=== PATIENT | male | born 1975 | race Caucasian/White ===

== ENCOUNTER 2016-10-15 19:00 | Emergency (ER) | payer BC, SELFPAY ==
--- NOTE | ~2016-10-15 | ER ---
PATIENT'S NAME: JOHN DIAZ [facility] AGE: 41 Y [address] ROOM: [place] [id number] LOCATION: [facility] ADMIT DATE: 10/15/2016 ER/Outpatient Report DISCHARGE DATE: 10/15/2016 FAMILY PHYSICIAN: Garett Schafer MD ATTENDING PHYSICIAN: Graeme Contreras Time of Arrival: 1902 hours. Time of Exam: 1902 hours. CHIEF COMPLAINT: Back pain. HISTORY OF PRESENT ILLNESS: The patient states he has had a long history of back problems, has had several back surgeries. He had some generalized discomfort on Friday and this morning he lifted up the humidifier to refill it and developed pain in the left lower back area. It feels sharp in that area, deep into the hip and does have some radiation down the left leg. Denies any numbness of his foot. Does have some tingling of his legs. States he has been peeing and pooping without any problems. He has not been incontinent. Has not had any other injuries. ALLERGIES: NO KNOWN ALLERGIES. CURRENT MEDICATIONS: On his chart and reviewed by me. PAST MEDICAL HISTORY: Hypertension, anxiety, depression, environmental allergies, and gastric reflux. PAST SURGERIES: Back surgery x2, left inguinal hernia repair, right knee scope, and right forearm surgery. SOCIAL HISTORY: He does smoke 1-1/2 pack per day and has for the last 16 years. Denies use of drugs or alcohol. REVIEW OF SYSTEMS: All negative other than those mentioned in the HPI. PHYSICAL EXAMINATION: VITAL SIGNS: He states he is 6 feet 1 inch tall. He weighed 57 kg. Blood pressure is 140/99, pulse is 74, respirations 16, temperature of 98, and O2 PATIENT'S NAME: JOHN DIAZ [facility] AGE: 41 Y [address] ROOM: [place], [place] [id number] LOCATION: [facility] ADMIT DATE: 10/15/2016 ER/Outpatient Report DISCHARGE DATE: 10/15/2016 FAMILY PHYSICIAN: Garett Schafer MD ATTENDING PHYSICIAN: Graeme Contreras saturation was 98% on room air. GENERAL: He is awake, alert, and oriented x4. His [place] Coma Scale is 15. He walked in with a shuffling type gait, but able to walk and did not need a wheelchair. SKIN: [place], warm, and dry. LUNGS: Lung sounds are clear throughout. HEART: Regular rate and rhythm. He is tender to palpate in the left lower back area. No pain along the spinal column. The pain is more lateral of the spine. He has strong pedal pulses. EMERGENCY ROOM COURSE: Saline lock was initiated. The patient was given Valium 2 mg IV, fentanyl 50 mcg IV, Zofran 4 mg IV, and Solu-Medrol 125 mg IV. The patient was laid on the cart, was monitored, the pain did go down from a 10/10 down to a 6/10. He was able to roll a little bit easier on the table after the medications. IMPRESSION: 1. Back pain. 2. Muscle spasms. PLAN: Home. Rest. Ice to the area tonight and may try heat tomorrow. Okay to take his home medications. Prescription was written for Percocet for pain and prednisone for anti-inflammatory. He is to call Dr. Cruz's office to be followed up in the next 2-[address] Schafer, his primary provider. He and his verbalized understanding. RYAN ARELLANO APRN FOR DO DARBY FOSTER/harshall /[id number] d: 10/16/16 0153 t: 10/18/16 1239, OUTPATIENT REPORT
[~2016-10-15 19:00] MED LIST: CLARITIN10 MG PO; LEXAPRO10 MG PO; LISINOPRIL10 MG PO; OMEPRAZOLE40 MG PO; SINGULAIR10 MG PO; TYLENOL EXTRA500 MG PO; XANAX1 MG PO
== END 2016-10-15 20:33 | disposition disaster alternative care site (69) ==
LOC: GMED 19:00
DX: M62.830 Muscle spasm of back (principal); M54.5 Low back pain; I10 Essential (primary) hypertension; F32.9 Major depressive disorder, single episode, unspecified; K21.9 Gastro-esophageal reflux disease without esophagitis; F17.210 Nicotine dependence, cigarettes, uncomplicated; F41.9 Anxiety disorder, unspecified; Z79.899 Other long term (current) drug therapy; Z98.890 Other specified postprocedural states
CPT/HCPCS: J2405; J2930; J3010; J3360

== ENCOUNTER 2016-12-15 16:17 | Emergency (ER) | payer BC ==
--- NOTE | ~2016-12-15 | ER ---
PATIENT'S NAME: JOHN DIAZ [facility] AGE: 41 Y [address] ROOM: [place], [place] [address] LOCATION: [facility] ADMIT DATE: 12/15/2016 ER/Outpatient Report DISCHARGE DATE: 12/15/2016 FAMILY PHYSICIAN: Garett Schafer MD ATTENDING PHYSICIAN: Graeme Contreras TIME SEEN: 1700 hours. CHIEF COMPLAINT: Low back pain. HISTORY OF PRESENT ILLNESS: The patient is a 41-year-old male, who states a week ago, he was jumping on a trampoline. The patient said that when he landed on his buttocks, the trampoline bottom out and hit the ground. He presents complaining of pain at the lower lumbar area. He denies any change in his bowel or bladder habits. He noticed maybe some tingling on the inner aspect of his left thigh. The patient has had previous back issues with degenerative disk disease. The patient has had previous surgery by Dr. Cruz and has also seen Dr. Waite, who couple years ago referred him to the [facility] in [place]. ALLERGIES: HAS NO MEDICINAL ALLERGIES. CURRENT MEDICATIONS: Has taken some Tylenol. He has some hydrocodone at home that he takes for pain. MEDICAL HISTORY: Includes hypertension, GERD, degenerative disk disease. SURGERIES: Include 2 previous back surgeries. SOCIAL HISTORY: Smoker, 1-1/2 pack a day. Alcohol, occasionally. REVIEW OF SYSTEMS: GENERAL: No recent fever or chills. HEAD/EENT: No complaints of headache or neck pain. GASTROINTESTINAL: Normal bowel movements. GENITOURINARY: No incontinence. No dysuria. No blood in his urine. MUSCULOSKELETAL: Includes low back pain. PATIENT'S NAME: JOHN DIAZ [facility] AGE: 41 Y [address] ROOM: [place], [place] [address] LOCATION: [facility] ADMIT DATE: 12/15/2016 ER/Outpatient Report DISCHARGE DATE: 12/15/2016 FAMILY PHYSICIAN: Garett Schafer MD ATTENDING PHYSICIAN: Graeme Contreras PHYSICAL EXAMINATION: VITAL SIGNS: Blood pressure was 128/81, respiratory rate 16, pulse 76, O2 saturations 97%. GENERAL APPEARANCE: Alert, oriented, in no obvious distress. LUNGS: Clear. HEART: Regular rhythm. BACK: He is tender over the L4-L5 area. The patient has a scar from his previous back surgery. NEUROLOGICAL: Strength to his lower legs seemed equal and normal. Sensation also has appeared normal. IMAGING: CT scan of lumbar sacral area showed some degenerative disk disease. No acute fractures. ASSESSMENT: Low back pain with history of degenerative disk disease. PLAN: Recommend continue ice, heat. Uses hydrocodone which he has at home as needed for pain. Recommend he follow up with either Dr. Cruz or Dr. Waite. The patient verbalized understanding of the CT report and our recommendations and agreed. KARLY BAXTER FOR DO CHANTEL FOSTER/harshall /[id number] d: 12/16/16 0027 t: 12/20/16 1212, OUTPATIENT REPORT
== END 2016-12-15 18:03 | disposition disaster alternative care site (69) ==
LOC: GACC 16:17
DX: M54.5 Low back pain (principal); I10 Essential (primary) hypertension; F17.210 Nicotine dependence, cigarettes, uncomplicated; K21.9 Gastro-esophageal reflux disease without esophagitis; Z87.39 Personal history of other diseases of the musculoskeletal system and connective tissue; Z79.899 Other long term (current) drug therapy; Z98.890 Other specified postprocedural states